=== PATIENT | male | born 1955 | race Caucasian/White ===

== ENCOUNTER → 2023-08-26 | Outpatient (CLI) | payer MEDICARE, SELFPAY ==
--- NOTE | 2023-08-26 08:00 | MRI_ITS ---
STUDY: MRI LUMBAR SPINE WITHOUT CONTRAST REASON FOR EXAM: Male, 68 years old. pain pain, low back,rt leg,, TECHNIQUE: Standardized fat and water weighted pulse sequences were obtained in the sagittal and axial planes. COMPARISON: None FINDINGS: Extrarenal pelvic systems versus parenchymal cysts incompletely evaluated in both kidneys, partially viewed on image 15/38 series 19. No marrow edema or fracture or compression deformity is present. Normal lumbar lordosis. There is no substantial scoliosis. Normal conus medullaris that terminates at the T12-L1: Normal endplates. Normal disc height, hydration and morphology. Normal bilateral facet joints. Normal central canal and bilateral lateral recesses. Normal bilateral intervertebral neural foramina. L1-2: Normal endplates. Normal disc height, hydration and morphology. Normal bilateral facet joints. Normal central canal and bilateral lateral recesses. Normal bilateral intervertebral neural foramina. L2-3: Normal endplates. Normal disc height and morphology. Normal bilateral facet joints. Normal central canal and bilateral lateral recesses. Normal bilateral intervertebral neural foramina. L3-4: Severe disc space narrowing with a diffuse disc osteophyte complex. Mild Modic endplate degenerative signal. Mild facet joint and ligament of flavum hypertrophy, right greater than left. Bilateral lateral recess stenosis. Mild nerve root impingement of the right descending nerve root within the lateral recess. Normal central canal. Mild left foraminal stenosis. Mild right foraminal stenosis with posterior nerve root impingement. L4-5: Normal endplates. Diffuse disc desiccation with mild to moderate posterior disc space narrowing resulting in a moderate size right paracentral disc protrusion measuring 8.8 x 7.3 mm in diameter causing right lateral recess stenosis with nerve root compression and mild central canal stenosis. Mild facet joint hypertrophy. Moderate left foraminal stenosis with nerve root compression. Normal right neural foramen. L5-S1: Normal endplates. Diffuse disc desiccation with mild posterior disc space narrowing and slight annular bulging. Mild facet joint hypertrophy. Normal central canal and bilateral lateral recesses. Normal bilateral intervertebral neural foramina. Normal visualized sacral ala. Normal visualized paraspinous soft tissue structures. MRI/Spine Lumbar (Routine) IMPRESSION: 1. Multilevel degenerative changes, as described above. 2. L4-5: Normal endplates. Diffuse disc desiccation with mild to moderate posterior disc space narrowing resulting in a moderate size right paracentral disc protrusion measuring 8.8 x 7.3 mm in diameter causing right lateral recess stenosis with nerve root compression and mild central canal stenosis. 3. L3-4: Severe disc space narrowing with a diffuse disc osteophyte complex. Mild Modic endplate degenerative signal. Mild facet joint and ligament of flavum hypertrophy, right greater than left. Bilateral lateral recess stenosis. Mild nerve root impingement of the right descending nerve root within the lateral recess. 4. Moderate left foraminal stenosis with nerve root compression at L4-L5 Electronically Signed: David Zelaya MD at 14:47 EST ,
== END | disposition home or self-care (01) ==
PROVIDERS: PCP Nurse Practitioner Family; Referring Provider Orthopaedic Surgery Orthopaedic Surgery of the Spine; Visit Provider Orthopaedic Surgery Orthopaedic Surgery of the Spine
DX: M54.50 Low back pain, unspecified (principal)
CPT/HCPCS: 72148

== ENCOUNTER 2023-10-29 05:10 | Inpatient (IN) | payer MEDICARE, SELFPAY ==
--- NOTE | 2023-10-16 08:48 | EKG12_ITS ---
Test Reason : PRE-OP Blood Pressure : / mmHG Vent. Rate : 091 BPM Atrial Rate : 091 BPM P-R Int : 138 ms QRS Dur : 090 ms QT Int : 372 ms P-R-T Axes : 041 028 049 degrees QTc Int : 457 ms Normal sinus rhythm Inferior infarct , age undetermined Abnormal ECG Confirmed by ARTURO MATA, RICARDO ([id number]), editorial director DARLENE GRAY ([id number]) on 10/16/2023 1:05:16 PM Referred By: LUIS Confirmed By:RICARDO MORRIS MD
[2023-10-16 09:33] LABS: Absolute Lymphocyte Count 1.62 X10^3/uL (0.83-4.51); Absolute Neutrophil Count 4.7 X10^3/uL (2.0-7.7); Basophil# 0.07 X10^3/uL; Eosinophil# 0.12 X10^3/uL; Eosinophils% 1.7 % (0-5); Hematocrit 48.1 % (40-54); Hemoglobin 15.9 g/dL (13.0-16.5); Lymphocyte # 1.62 X10^3/ul (0.83-4.51); Lymphocyte % 22.8 % (19-41); Mean Corp Hgb Conc 33.1 g/dL (32-36); Mean Corpuscular Hgb 29.6 pg (27.0-32.0); Mean Corpuscular Volume 89.6 fL (80-94); Mean Platelet Vol. 9.8 fl (6.2-12.0); Monocyte# 0.55 X10^3/uL; Monocyte% 7.7 % (0-10); NRBC Flagged by Analyzer 0 % (0-5); Neutrophil # 4.72 X10^3/uL (2.7-7.7); Neutrophil % 66.5 % (47-70); Platelet Count 191 K/mm3 (150-450); RBC Distribution Width CV 13.1 % (11.6-14.6); RBC Distribution Width SD 42.8 fl (35.1-43.9); Red Blood Count 5.37 M/mm3 (4.6-6.2); White Blood Count 7.1 K/mm3 (4.4-11.0)
[2023-10-16 10:13] LABS: Hemoglobin A1c 6.3 % (3.8-5.6)
[2023-10-16 10:14] LABS: Anion Gap 7 (5-15); BUN 17 mg/dL (7-18); BUN/Creat Ratio 14.7 RATIO (10-20); Chloride 109 mmol/L (98-107); Creatinine, Serum 1.16 mg/dL (0.70-1.30); EST Glomerular Filtration Rate 66 mL/min (>60); Est Glom Filt Rate - Afr Amer 80 mL/min (>60); Glucose 139 mg/dL (74-106); Potassium 4.2 mmol/L (3.5-5.1); Sodium Level 138 mmol/L (136-145)
[2023-10-16 10:18] LABS: AST(SGOT) 21 U/L (15-37); Alanine Aminotransfer ALT/SGPT 33 U/L (16-61); Albumin, Serum 3.6 g/dL (3.2-5.0); Alkaline Phosphatase 65 U/L (45-117); Globulin 3.8 g/dL (2.2-4.2); Magnesium 2.1 mg/dL (1.6-2.6); Protein, Total 7.4 g/dL (6.4-8.2); Thyroid Stim Hormone (TSH) 3.91 uIU/mL (0.358-3.74)
[2023-10-16 10:42] LABS: HIV - WCH Non-Reactive (Nonreactive); Hepatitis B Surface Antibody Reactive; Hepatitis C Antibody Non-Reactive (Nonreactive)
[2023-10-17 05:07] LABS: Hepatitis A AB, Total Positive (Negative)
--- NOTE | 2023-10-22 14:59 | NURSING ---
PT PHONED IN TO RECEIVE CLARIFICATION REGARDING SURGERY PREP. THIS RN REVIEWED MEDICATIONS TO TAKE NIGHT BEFORE AND MORNING OF SURGERY, NPO STATUS INFO, TIMING OF ENSURE DRINKS, PRE-SURGERY SOAP/ INFO GIVEN PER PT REQUEST RE: VISITNG HOURS, LIVING WILL , POA. PT STATES HE DOES HAVE PACKET OF INSTRUCTIONS FROM DR OFFICE. PT VERBALIZES UNDERSTANDING OF INFO DISCUSSED HERE.
[2023-10-29] VITALS (14 sets, daily range): BP systolic 100–136; BP diastolic 58–94; PULSE 83–122; RESP 14–20; TEMP 35.7–37.1; O2SAT 83–99; BMI 38.5
[2023-10-29] MEDS: Lactated Ringers 1,000 ML 15 ML IV (06:00)
[2023-10-29] MEDS: Acetaminophen 500 MG Tablet 1000 MG PO ×2 (06:18→20:56)
[2023-10-29] MEDS: Magnesium 1 GM over 15 mins IV (06:18)
[2023-10-29 06:22] LABS: Bedside Glucose 209 mg/dL (74-106)
[2023-10-29] MEDS: Insulin Lispro 100 UNIT/ML INSULN.PEN SC (06:30)
--- NOTE | 2023-10-29 07:27 | HP.PCM_ITS ---
History and Physical Date of Admission: 10/29/23 MR#: [id number] Acct: [id number] Name: CHUCK DILL Rep #: [id number] : 1955 Provider: Dr. Alvin Prakash MD Age/Sex: 68/M Location: [facility] – [place] Status: Signed Intake Vital Signs 07/25/2309:24 10/21/2408:19 Height 5 ft 8 in 5 ft 8 in Weight: 249 lb 250 lb 4 oz BMI 37.8 38.0 Intake Visit Reasons: lumbar spine Chief Complaint: low back pain Accompanied by: Self Is patient in pain?: Yes Pain scale (1-10): 8 Allergies cephalexin Allergy (Verified 10/22/23 09:20) Rashdoxycycline Allergy (Verified 10/22/23 09:20) Diarrhealovastatin Allergy (Verified 10/22/23 09:20) Othermetformin Allergy (Verified 10/22/23 09:20) Diarrheasulfas Allergy (Mild, Uncoded 10/22/23 09:20) Rash Medications atorvastatin 40 mg tablet 40 mg PO DAILY CHOLESTEROL 05/02/23 [History Confirmed 10/22/23] empagliflozin 25 mg tablet (Jardiance) 25 mg PO QAM DIABETES 05/02/23 [History Confirmed 10/22/23] glipizide 10 mg tablet, extended release 24 hr 20 mg PO DAILY DIABETES 05/02/23 [History Confirmed 10/22/23] insulin glargine-yfgn 100 unit/mL (3 mL) subcutaneous pen 75 unit subcut QPM DIABETES 05/02/23 [History Confirmed 10/22/23] lisinopril 40 mg tablet 40 mg PO DAILY BP 05/02/23 [History Confirmed 10/22/23] albuterol sulfate 90 mcg/actuation aerosol inhaler 2 puff inhalation Q6H PRN shortness of breath or wheezing 05/29/23 [History Confirmed 10/22/23] metformin 500 mg tablet,extended release 24 hr 1,000 mg PO BID DIABETES 05/29/23 [History Confirmed 10/22/23] dulaglutide 3 mg/0.5 mL subcutaneous pen injector (Trulicity) 3 mg subcut MO DIABETES 10/14/23 [History Confirmed 10/22/23] PFSH Medical History Ambulates with cane Anemia Arthritis Asthma Cardiology follow-up encounter CPAP (continuous positive airway pressure) dependence Depression Diastolic dysfunction Dietary restriction Diverticulitis Fatty liver Former smoker Heartburn Hepatitis High cholesterol History of echocardiogram History of edema History of heart attack History of pain when walking History of stress test Hypertension Injury of back Insulin dependent diabetes mellitus Leg cramps Lumbar herniated disc Neuropathic pain Polyarthralgia Prostate disease Protruded lumbar disc Restless legs Seborrheic keratoses Shortness of breath on exertion Thyroid disease Wears glasses Surgical History History of appendectomy History of hernia repair History of lumbar laminectomy Hx of colectomy Hx of colonoscopy Status post lumbar microdiscectomy Family History Grandfather Cancer Diabetes HypertensionMother Cancer Diabetes Hypertension Social History household members: friend(s) Smoking Status: Former smoker alcohol intake: current alcohol intake frequency: a few times a week HPI lumbar spine Details: This documentation accurately reflects the service provided and the decisions made by me, Dr. Alvin Prakash MD 10/22/23 0916. Part of today?s visit was documented by [ ], acting as scribe. CHUCK DILL is a 68 year old M here today for Pre-op. Patient is getting L3-L4 & L4-L5 Anterior & Posterior Fusion with L3-L4 & L4-L5 Laminectomy on 10/29/23. Patient states that his back pain has been about the same that nothing has changed. Patient was given the soap and drinks for surgery and gone over them with him. Chuck continues to have low back pain that radiates down to the right worse than left lower extremities. He is here for his preop visit. Following his his previous history.: 09/04/23: CHUCK DILL is a 68 year old M here today for MRI review of lumbar spine. Patient states he is currently in pain. He ambulates with a cane today. He states it is getting more difficult to sleep at night. Patient denies anything that helps decrease his pain. Patient states that getting around anymore is difficult and increases his lumbar spine pain. Patient denies taking any pain medication for his lumbar spine pain. Patient is hoping to discuss surgery today and wants to come up with a possible date. Chuck continues to be in significant low back pain which is radiating to the right worse than left lower extremities. I had seen him briefly in conjunction with Dr. Harley at his last visit with Dr. Harley on 07/25/2023. At that time he had discussed the possibility of surgery with Dr. Harley, but was advised to obtain an updated MRI. He obtained a new MRI and is here to review. He has had L3-4 right laminotomy surgery in 2005 as well as an upper thoracic laminectomy with instrumented fusion in 2013. He has had multiple abdominal surgeries including midline incisions for diverticulitis as well as an open appendectomy incision in the right lower quadrant. He had a prolonged course of physical therapy over the last few years which did not seem to help and only aggravated his pain. He declined injections because of his diabetes. He has had chiropractic treatment as well in the past. He has seen Dr. Harley multiple times in April and June 2023. His symptoms have been worsening with time which is adding depression for him. At his last visit with Dr. Harley, Dr. Harley requested me to evaluate hip for possibility of an oblique anterolateral surgical approach to address his lumbar pathology. Ortho Exam General General: Yes no acute distress Neurologic: Yes alert and Yes oriented x3 Spine SPINE TESTING CERVICAL THORACIC LUMBAR Musculoskeletal Strength 0=absent - 5=normal Details: Examination of the back shows midline scar likely from the L3-4 laminotomy. Abdomen shows lower midline incisional scar as well as right lower quadrant appendectomy scar. Neurologic evaluation of bilateral lower extremity shows 5 x 5 power in all muscle groups with normal sensations in all dermatomes. Coding Level of Care Code Off vis,est,level 4 Diagnoses Spinal stenosis of lumbar region with neurogenic claudication M48.062 Time Spent (min) 45 Assessment and Plan Assessment and Plan (1) Spinal stenosis of lumbar region with neurogenic claudication: Status: Acute Orders: Orders L/S Spine Bending Flex/Ext Today M48.062 - Spinal stenosis, lumbar region with neurogenic claudication Plan I again reviewed the patient's x-rays from April as well as MRI from July 2023. I also obtained flexion-extension views today. These show L3-4 reduced disc height with degenerative disc disease with right worse than left foraminal stenosis. At L4-5 there is a right paracentral disc bulge causing severe lateral recess stenosis along with bilateral foraminal stenosis. No dynamic instability on flexion-extension views. I again explained to him options for treatment which include continued nonoperative treat measures versus surgery. He has failed a prolonged course of nonsurgical treatment including physical therapy which only increases pain in the past. His diabetes is better with A1c in the sixes. At this point he would like to proceed with surgery. Surgical options were discussed in detail. L3-5 anterior posterior fusion with posterior decompression was discussed in detail. All risk benefits and alternatives were discussed. The risks include but are not limited to infection, bleeding, injury to nerves and vessels, need for blood transfusion, nerve root injury, foot drop, DVT, pulmonary embolism, ileus, visceral injury, pneumonia, atelectasis, cardiopulmonary event, pseudoarthrosis, hardware failure, need for further surgeries, adjacent segment degeneration, persistent pain. Patient has had multiple abdominal surgeries including midline scars. I explained to him the anterolateral approach. Although his prior incisions of midline there may be deeper scarring close to the spine that may make it difficult for anterior approach. Alternative posterior approach options were discussed. All questions were answered. Patient understands and agrees to proceed with surgery. Consent was signed.
[2023-10-29] MEDS: Clindamycin 900 MG/50 ML BAG 75 MG IV ×3 (07:37→20:55)
--- NOTE | 2023-10-29 07:50 | RAD_ITS ---
STUDY: X-RAY - LUMBAR SPINE REASON FOR EXAM: Male, 68 years old. Anterior and posterior fusion. Intraoperative digital documentation views. TECHNIQUE: 14 intraoperative digital documentation view(s) of the lumbar spine were obtained. COMPARISON: Lumbar spine x-rays dated 10/22/2023 FINDINGS: Intraoperative digital documentation views show changes of fusion. RAD/Lumbar Spine 2 or 3 Views IMPRESSION: Intraoperative digital documentation views as described. Electronically Signed: William Olivas MD at 13:17 EDT ,
[2023-10-29 11:16] LABS: Bedside Glucose 185 mg/dL (74-106)
--- NOTE | 2023-10-29 12:15 | RAD_ITS ---
STUDY: X-RAY - LUMBAR SPINE REASON FOR EXAM: Male, 68 years old. L3-L4, L4-L5 fusion and laminectomy TECHNIQUE: Single lateral view(s) of the lumbar spine were obtained. COMPARISON: None FINDINGS: The localization instrument is seen posterior to the L3-L4 disc space level. RAD/Spine 1 View Any Level IMPRESSION: The localization instrument is seen posterior to the L3-L4 disc space level. Electronically Signed: David Rey MD at 14:38 EDT ,
[2023-10-29] MEDS: THROMBIN (RECOMBINANT) 20,000 UNIT VIAL 20000 UNIT TOPICAL (12:55)
[2023-10-29 13:35] LABS: Bedside Glucose 178 mg/dL (74-106)
--- NOTE | 2023-10-29 13:55 | RAD_ITS ---
STUDY: X-RAY - LUMBAR SPINE REASON FOR EXAM: Male, 68 years old. L3-L4, L4-L5 fusion and laminectomy TECHNIQUE: 1 view(s) of the lumbar spine were obtained. COMPARISON: Comparison is made with prior study done earlier in the day. FINDINGS: The patient is status post anterior and posterior fusion at the L3-L4 and L4-L5 levels with prosthetic disc placement. RAD/Spine 1 View Any Level IMPRESSION: Status post anterior and posterior fusion at the L3-L4 and L4-L5 levels with prosthetic disc placement. Electronically Signed: David Rey MD at 14:03 EDT ,
--- NOTE | 2023-10-29 14:14 | PCM.OPRPT ---
Report of Operation Description of Surgical Findings:: Preoperative diagnosis: Herniated disc L4-5 with intractable L5 radiculopathy on the right side and degenerative disc disease at L4-5 And L3-4. Postoperative diagnoses: Same Procedures: #1 posterior lumbar fusion L4-5 CPT code 48365 #2 lumbar laminectomy L4-5 on the right CPT code 41073 #3 internal fixation L4-5 CPT code 10701 #4 internal fixation L3-4 CPT code 87495/51 #5 posterior lumbar fusion L3-4 CPT code 03115/51 #6 bone allograft with autograft L3-L5 CPT code 86468 Surgeon: Dr. Harley Photogrammetric Engineer: Dr. Prakash Anesthesia: General endotracheal administered by [facility] Drains: None EBL: 500 cc for both the anterior surgery and the posterior surgery Complications: None Procedure: After Dr. Prakash and Dr. Mchugh completed the anterior L3-4 and L4-5 fusion the patient was then moved to a Jose Luis frame on the OR table in the prone position. Great care was taken to protect his bony prominences ulnar nerves of both elbows his brachial plexus on both sides his facial features and eyes his genitalia and bony prominences. Once positioned the back was prepped and draped standard fashion. I then made a longitudinal incision centered over what I thought would be L4-5. Cutaneous tissues were incised length of skin incision I then elevated paravertebral muscles off on the right side. An intraoperative x-ray was taken demonstrate we were aimed at L3-4 instead which was really okay we simply moved down 1 level and marked it. First I simply expose the L4 lamina on the right side put a Maddison retractor in place. We then removed the fatty tissue and areolar tissue off of the lamina of L4. I also exposed the top of the lamina of L5. I used double-action rongeurs to thin down the thickened L for lamina on the right. I then released the ligamentum flavum off the underside of the lamina of L4 using curettes. I then performed the hemilaminotomy on the right side. I then put a hockey-stick retractor also called a Valerie under the ligamentum flavum near its medial border and cut on top of it with a sharp 15 blade. I then released the ligamentum flavum off the top of the L5 lamina using curettes. Then began removal of the ligamentum flavum with 45 degree Kerrison rongeurs. At times I protected the dura with cottonoids as needed. We finally remove the entire lateral ligamentum flavum. Note that we thoroughly irrigated repeatedly in the course of the case to prevent infection. I then retracted the L5 nerve root and dura medialward. Note that the entire lateral recess was well opened. What I found was that the disc that Dr. Prakash was able to remove from the anterior portion followed by the ligamentotaxis from the distraction at L4-5 basically pushed the disc back towards the disc space and there was no significant pressure on the L5 nerve root anymore. In the axilla I did find a very small piece that was quite medial basically adhered to the dura. Since it was no longer any pressure on the L5 nerve I simply left it alone is trying to remove it would put the dura at risk for leakage. I then checked the foramen both from anterior portion of the L5 nerve and the posterior portion and there was no more pressure whatsoever on that nerve root. Note that we thoroughly irrigated with copious amounts of sterile saline repeatedly especially because this gentleman is diabetic. Following this I remove the interspinous ligament between L3-4 and L4-5. This was to make room for the cortical and graft for each level. We then put amnionic membrane directly over the dura to prevent adhesions to the dura in the future. Gelfoam was placed over the top of that I then used the bur to bur the lamina of L5 the lamina of L4 and the lamina of L3 on both sides. This is to prepare for the bone graft note we used both autograft and sparc mixed together and put it on both sides to promote a fusion. Once this was done I then put the and grafts in place over the top of them and tamped them in place. Internal fixation devices were then applied at both the L3-4 and L4-5 levels. Once secured the locking mechanisms were activated leaving them in place and given us good posterior fixation. We had good hemostasis by this time and there was no need for a drain. I then closed the lumbar fascia using [id number] suture with #1 Vicryl. We then closed the subcutaneous tissues in 2 layers the first layer with 0 Vicryl in interrupted fashion and the second layer with 2-0 Vicryl in interrupted fashion. Skin clips were then applied. We then put sterile dressings over this. The patient was then recovered in the OR he was moved to his hospital bed and taken to recovery in satisfactory condition. This is the end of operative summary on Chuck Rivas. This is Dr. Harley dictating.
--- NOTE | 2023-10-29 14:21 | OP.PCM_ITS ---
Report of Operation Date of Procedure: 10/29/23 Description of Surgical Findings:: Preoperative diagnosis: L3-5 disc degeneration with foraminal stenosis Postoperative diagnosis: Same Name of procedures L3-5 oblique lumbar interbody fusion (OLIF), minimally invasive left sided approach, lateral decubitus: ? L3-4 anterolateral spinal fusion 21439 ? L4-5 anterolateral fusion 30003/51 ? L3-4 insertion of cage 89108 ? L4-5 insertion of cage 68954/51 ? Bone graft aspirate left anterior iliac crest ? Allograft cancellous chips Attending Surgeon: Dr. Alvin Prakash Co-surgeon: Dr. Hernán Mchugh Estimated blood loss: 100 mL , 500 mL for entire case Anesthesia: General Complications: None Indications: Patient is a 68-year-old pleasant gentleman who has had a long history of low back pain and right worse than left lower extremity radiation with claudication. Xrays & MRI revealed L3-4 and L4-5 disc degeneration, postsurgical changes of right L3-4 laminotomy, L4-5 right paracentral disc herniation with lateral recess stenosis, L3-5 foraminal stenosis. After undergoing a prolonged period of nonoperative treatment, the patient elected to undergo surgical decompression & fusion. All surgical options were discussed with the patient including anterior and posterior approaches. All risks and benefits associated with the procedure were explained to the patient. The risks include but are not limited to infection, bleeding, injury to nerves and vessels including major vessels like IVC and aorta, persistent paresthesia, persistent pain, dural tear, need for further procedures, adjacent segment degeneration, pseudoarthrosis, hardware failure, retrograde ejaculation, paralytic ileus, etc. Procedure: The patient was identified in the preoperative holding suite using Unique patient identifiers. Skin was marked, consent was reviewed, and all questions were answered. The patient was then brought back to the operative room. A surgical timeout was performed to make sure correct procedure was being done on the correct patient and all operative room staff were on the same page. General endotracheal anesthesia was then given to the patient. Mahmood catheter was inserted. The patient was then carefully positioned in right lateral decubitus position with the left side up on a regular OR table. Axillary roll was placed and all bony prominences were well- padded. Hip positioners were placed in the posterior buttocks and anterior sternal area. The surgical area was prepped and draped in usual fashion. Preoperative antibiotic was injected IV as preoperative antibiotic. A final timeout was then again done just before starting the procedure. A 2 inch incision oblique was taken in the left lower quadrant of the abdomen 2 fingerbreadths away from the iliac crest and the lower ribs. Sharp dissection with Bovie was carried out up to the fascia covering the external oblique. The external oblique, internal oblique and transversus abdominis muscles were split along the muscle fibers and retroperitoneal space was entered. Sponge sticks were utilized to move the bowel and peritoneum [id number]-way and psoas muscle was exposed staying within the retroperitoneal plane. [employer] retractor system was positioned and the retractor blade was applied onto the psoas. The interval between psoas and midline structures was developed and appropriate retractors were placed. Once adequate interval was cleared, a disc space was identified and a marker x-ray was taken. This identified the L3-4 disc level. The prepsoas interval was then traced inferiorly and L4-5 disc was exposed. Annulotomy was done with a long handled knife starting at L4-5. Pituitary was used to remove disc material. Curettes were used to prepare the endplates. Disc space spreaders were utilized to distract and increase the disc height. Near complete discectomy was performed. Trials of serially increasing sizes were used. A Jamshidi needle was used to aspirate bone marrow from the left anterior iliac crest through a separate incision and this aspirate was mixed with the allograft bone chips. A Depuy Witt cage of size of the 18 x 15 x 14 mm with 15 degrees lordosis was packed with corticocancellous allograft bone chips mixed with bone marrow aspirate. This was inserted into the L4-5 disc space. The retractors were then repositioned to expose the L3-4 disc and the procedure was repeated with complete discectomy and endplate preparation. Smaller disc distractors were also used to bluntly perform a contralateral annulotomy at both levels. Cage size was 18 x 15 x 12 mm at L3-4. AP and lateral C-arm pictures were taken to confirm good position of the cage. Some bone chips were also packed around the cages. 4 web to hold plates were placed over both cages with a 45 mm screws placed above and below the cage into the vertebral bodies. This was again confirmed on C-arm to be in good position. Hemostasis was confirmed. The retractor blades were removed. Closure was done in layers with a continuous strand of # 1 Vicryl in all muscle layers. 2-0 Vicryl was used for subcutaneous tissue and 4-0 for Monocryl for the skin. Steri-Strips were applied and 4 x 4 gauze and Tegaderm were applied. Admit VTE Documentation VTE Mechan Device Prophylaxis: SCD's Procedures Musculoskeletal [id number]-[id number]: Other Procedure See Report
[2023-10-29] MEDS: Ketorolac 30 MG/ML Syringe IV (15:06)
[2023-10-29 15:23] LABS: Bedside Glucose 180 mg/dL (74-106)
[2023-10-29] MEDS: metFORMIN (XR) 500 MG Tablet 1000 MG PO (17:23)
[2023-10-29] MEDS: Methocarbamol 500 MG Tablet 1000 MG PO ×2 (17:23→20:56)
[2023-10-29] MEDS: oxyCODONE 5 MG Tablet PO (18:35)
--- NOTE | 2023-10-29 20:23 | CON.PCM.HO_ITS ---
Assessment & Plan Assessment/Plan (1) Spinal stenosis of lumbar region with neurogenic claudication: (2) Herniated nucleus pulposus, L4-5 right: PLAN: Plan This is a 3-year-old gentleman who is being evaluated for perioperative management after lumbar spine surgery. 1. Perioperative management of L3-5 disc degeneration with foraminal stenosis and herniated L4-5 right: Patient had L3-5 oblique lumbar interbody fusion, left-sided approach by Dr. Prakash. Patient is admitted to [facility]. Has Mahmood catheter inserted prior to surgery. Clear urine. Last bowel movement was yesterday. On a stool softener. Mild expiratory pain on the lumbar back. 2. Diabetes mellitus type 2: Glucose is between 1 80?209. Hold oral hypoglycemic agents including metformin and glipizide. Accu-Cheks ACHS correctional clinic scale. Patient on Lantus insulin 60 units subcutaneous at dinner. 3. Hypertension: Blood pressure is controlled. On lisinopril 40 mg daily. 4. Obstructive sleep apnea on auto CPAP CPAP ordered 5. Chronic intermittent asthma: On DuoNeb as needed as needed for shortness of breath or wheezing. 6. DVT prophylaxis as per discretion of surgeon. Bilateral SCDs Laboratory Results 10/29/23 05:45: POC Glucose 209 H 10/29/23 10:57: POC Glucose 185 H 10/29/23 13:17: POC Glucose 178 H 10/29/23 15:00: POC Glucose 180 H HPI Consult Data Date of Consult: 10/29/23 HPI Narrative Reason for Consultation: Perioperative management of diabetes mellitus type 2, hypertension, KERRY HPI Narrative: NATO DILL, is a 68 M who is being admitted after operative management of L3- 4, L4-5 disc herniation and surgery. Patient is stated he had 2 lumbar surgeries in the past. He ambulates with a cane with getting more difficult to ambulate and sleep because of pain. Patient had severe lower back pain with radiation to right worse than left lower extremity. Patient had L3-4 right laminotomy surgery in 2005 and upper thoracic laminectomy with instrumented fusion in 2013. He completed conservative management which includes prolonged course of physical therapy over the last few years but has only aggravated his pain. Patient has Mahmood catheter urine present in the urine bag. Denies chest pain, pressure or tightness. No acute shortness of breath. His last bowel was yesterday [facility] Medical History Ambulates with cane Anemia Arthritis Asthma Cardiology follow-up encounter CPAP (continuous positive airway pressure) dependence Depression Diastolic dysfunction Dietary restriction Diverticulitis Fatty liver Former smoker Heartburn Hepatitis High cholesterol History of echocardiogram History of edema History of heart attack History of pain when walking History of stress test Hypertension Injury of back Insulin dependent diabetes mellitus Leg cramps Lumbar herniated disc Neuropathic pain Polyarthralgia Prostate disease Protruded lumbar disc Restless legs Seborrheic keratoses Shortness of breath on exertion Thyroid disease Wears glasses Home Medications atorvastatin 40 mg tablet 40 mg PO DAILY CHOLESTEROL 05/02/23 [History Last Taken 10/28/23] empagliflozin 25 mg tablet (Jardiance) 25 mg PO QAM DIABETES 05/02/23 [History Last Taken 10/28/23 09:00] insulin glargine-yfgn 100 unit/mL (3 mL) subcutaneous pen 60 unit subcut QPM DIABETES 05/02/23 [History Last Taken 10/28/23 21:00] lisinopril 40 mg tablet 40 mg PO DAILY BP 05/02/23 [History Last Taken 10/29/23 04:00] albuterol sulfate 90 mcg/actuation aerosol inhaler 2 puff inhalation Q6H PRN shortness of breath or wheezing 05/29/23 [History Last Taken Unknown] metformin 500 mg tablet,extended release 24 hr 1,000 mg PO BID DIABETES 05/29/23 [History Last Taken 10/28/23 09:00] dulaglutide 4.5 mg/0.5 mL subcutaneous pen injector (Trulicity) 4.5 mg (0.5 mL) subcut QWEEK diabetes #2 mL 10/23/23 [Rx Last Taken 10/27/23 09:00] glipizide 10 mg tablet, extended release 24 hr 20 mg (2 x 10 mg) PO DAILY DIABETES #180 tabs 10/23/23 [Rx Last Taken 10/28/23 09:14] Allergy/AdvReac Type Severity Reaction Status Date / Time cephalexin Allergy Rash Verified 10/23/23 08:37 doxycycline Allergy Diarrhea Verified 10/23/23 08:37 lovastatin Allergy Other Verified 10/23/23 08:37 metformin Allergy Diarrhea Verified 10/23/23 08:37 sulfas Allergy Mild Rash Uncoded 10/23/23 08:37 Family History Grandfather Cancer Diabetes Hypertension Mother Cancer Diabetes Hypertension Surgical History History of appendectomy History of hernia repair History of lumbar laminectomy Hx of colectomy Hx of colonoscopy Status post lumbar microdiscectomy Social History household members: friend(s) Smoking Status: Former smoker alcohol intake: current alcohol intake frequency: a few times a week ROS ROS Narrative Constitutional: Reports fatigue and weakness. No fever. HEENT: Reports systems reviewed and no addt'l complaints, except as documented Respiratory/Chest: No acute shortness of breath or respiratory distress or wheezing. CVS: Denies chest pressure, pain or tightness. Gastrointestinal: Denies coffee ground emesis, hematemesis or vomiting Genitourinary: Mahmood catheter present after surgery. Denies burning urination or new urinary tract symptoms Musculoskeletal: Severe lower back pain, sciatic in nature as described in HPI. Neurologic: Denies seizure-like symptoms. No acute strokelike symptoms. skin: No ulcer. No rash Endocrinology: Reports systems reviewed and no addt'l complaints, except as documented Hematologic/Lymphatic: Reports systems reviewed and no addt'l complaints, except as documented Rest 14 ROS are negative except as mentioned in HPI Physical Exam Narrative General: Alert, Oriented x3, Cooperative HEENT: Atraumatic, PERRLA, EOMI, Normocephalic Oral: Oral mucosa moist. no Gingival or Mucosal Lesions/ Ulcerations Neck: Supple, No JVD, Negative Carotid Bruits Chest wall/Lungs: Air entry diminished in bilateral lung bases. No cr epitation/rhonchi Cardiovascular: Regular rate, Regular Rhythm, Normal S1, Normal S2, No M/G/R Abdomen: Bowel Sounds Present, Soft, Non Tender, Non-Distended. Left lateral abdominal incision dry. : Clear urine present in Mahmood catheter/urine bag No renal angle tenderness. No suprapubic tenderness. Extremities: No edema, Capillary Refill Less than 3 Seconds Skin: No rashes, No breakdown Musculoskeletal: No Tenderness to Palpation of Joints or Extremities Spine: Surgical dressing dry over lumbar back. Neurological: Cranial nerves II-XII grossly intact, DTR 2+/4. No acute focal neurological deficit. Psych/Mental Status: Normal Affect, Appropriate. Lab / Micro Data 10/16/23 09:01 10/16/23 09:01 Labs: Laboratory Results - last 24 hr 10/29/23 05:45: POC Glucose 209 H 10/29/23 10:57: POC Glucose 185 H 10/29/23 13:17: POC Glucose 178 H 10/29/23 15:00: POC Glucose 180 H Imaging Radiology Impression Lumbar Spine X-Ray 10/29/23 07:50 IMPRESSION: Intraoperative digital documentation views as described. Electronically Signed: William Olivas MD at 13:17 EDT , Spine X-Ray 10/29/23 12:15 IMPRESSION: The localization instrument is seen posterior to the L3-L4 disc space level. Electronically Signed: David Rey MD at 14:38 EDT , Charges/Coding Visit Charges Office Visits / Consults: [id number] IP Consult L4
[2023-10-29] MEDS: Senna/Docusate Sodium 1 Tablet 2 TABLET PO (20:56)
[2023-10-29] MEDS: Ondansetron 4 MG/2 ML Vial IV (20:59)
[2023-10-29] MEDS: Insulin Glargine-YFGN 100 UNIT/ML Pen 60 UNIT SC (21:15)
[2023-10-29 22:18] LABS: Bedside Glucose 146 mg/dL (74-106)
[2023-10-30] VITALS (9 sets, daily range): BP systolic 112–130; BP diastolic 68–83; PULSE 98–108; RESP 16–18; TEMP 36.7–37.2; O2SAT 92–95; BMI 38.6
[2023-10-30] MEDS: oxyCODONE 5 MG Tablet PO ×4 (00:24→18:40)
--- NOTE | 2023-10-30 00:24 | CPS ---
Pt has own cpap on , RT had to bleed in O2 at 2L in line with home cpap.
[2023-10-30] MEDS: Acetaminophen 500 MG Tablet 1000 MG PO ×3 (05:48→21:29)
[2023-10-30] MEDS: Clindamycin 900 MG/50 ML BAG 75 MG IV (06:10)
[2023-10-30 06:12] LABS: Bedside Glucose 113 mg/dL (74-106)
--- NOTE | 2023-10-30 07:26 | OP.PCM_ITS ---
Report of Operation Date of Procedure: 10/29/23 Pre-Operative Diagnosis: L3-5 disc degeneration with foraminal stenosis Post-Operative Diagnosis: same Surgery/Procedure Performed:: L3-5 oblique lumbar interbody fusion (OLIF), minimally invasive left sided approach, lateral decubitus: ? L3-4 anterolateral spinal fusion 41482 ? L4-5 anterolateral fusion 19667/51 ? L3-4 insertion of cage 94984 ? L4-5 insertion of cage 31290/51 ? Bone graft aspirate left anterior iliac crest ? Allograft cancellous chips Surgeon: Co-surgeons: Dr. Prakash, Dr. Mchugh Type of Anesthesia: General Description of Procedure: HPI: Patient is a 68-year-old male with L3-L5 degenerative disc disease evaluated by Dr. Prakash and felt to be appropriate for L3-L4, L4-L5 interbody fusion via an oblique approach. Vascular surgery services are requested to perform exposure and mobilization of the abdominal contents. Description of procedure: Upon obtaining informed consent and verification c orrect patient procedure site patient taken the operating where he was placed under anesthesia. He was then positioned prepped and draped in usual fashion a timeout was performed. Oblique incision was made over the left iliac crest and Bovie electrocautery was dissect down through the subcutaneous tissue to the level the fascia. Fascia was then incised with sharp dissection and the muscles of the external oblique, internal oblique, and transversalis muscle were then split with hand-held retractors removed sequentially deeper into the wound. After dissection was completed through the transversalis muscle we entered into the retroperitoneum and blunt dissection used to dissect free the retroperitoneal contents and mobilized this in the abdominal contents anteromedially until the psoas muscle was identified. At this point the syn frame self-retaining retractors put in the position and the retractor blades placed to optimize visualization of the psoas muscle and the retroperitoneal ti ssue anterior to this. The patient had had previous colorectal surgery and fairly severe history of diverticulitis so there is a significant amount of scar tissue. Combination of Bovie dissection and blunt dissection were used to mobilize the psoas muscle and retracted posteriorly exposing the L3-L4 disc space. The disc was then marked with Bovie and dissection carried distally down to the L4-L5 disc space. Again there was a significant mount of scar tissue which had to be mobilized with Bovie and some sharp dissection in addition to the usual blunt dissection. Ultimately were able to expose the disc space at which point Dr. Prakash performed the L4-L5 discectomy and implant followed by the L3-L4 discectomy and implant. He will describe these in further detail in a separate dictation. After this was completed the retroperitoneum was inspected for hemostasis and the retractors removed allowing the abdominal contents to return to the normal position. The superficial wound was then copiously irrigated and the individual muscle layers were closed with 1 Vicryl in a running fashion. Incision was then closed with 3-0 Vicryl followed by 4 Monocryl. This point the patient was repositioned for posterior approach which would be dictated separately by Dr. Prakash.
--- NOTE | 2023-10-30 07:50 | PCM.PN.HOSP ---
Reason for Visit Reason for Visit: Diagnoses Spinal stenosis, lumbar region with neurogenic claudication (10/29/23) Other intervertebral disc displacement, lumbar region (10/29/23) Encounter for other preprocedural examination (10/29/23) Subjective Subjective Patient is a 68-year-old gentleman who underwent surgery for L3?5 disc degeneration with foraminal stenosis and herniated disc at L4-5. Ortho service was consulted for perioperative management Objective Data Objective Data Vital Signs: Vital Signs Temp Pulse Resp BP Pulse Ox O2 Del Method O2 Flow Rate 98.0 F 98 18 113/72 95 CPAP 2 10/30/23 04:22 10/30/23 04:22 10/30/23 04:22 10/30/23 04:22 10/30/23 04:22 10/30/23 04:22 10/30/23 00:23 Oxygen Flow Rate (L/min) 2 Oxygen Delivery Method CPAP Weight: 111.765 kg Body Mass Index (BMI) 38.5 Intake & Output: Intake and Output for Last 24 Hours 10/28/23 10/29/23 10/30/23 23:59 23:59 23:59 Intake Total 772 / 772 200 / 200 Output Total 1100 / 1900 1200 / 1200 Balance -328 / -1128 -1000 / -1000 Lab / Micro Data 10/16/23 09:01 10/16/23 09:01 Labs: Laboratory Results - last 24 hr 10/29/23 10:57: POC Glucose 185 H 10/29/23 13:17: POC Glucose 178 H 10/29/23 15:00: POC Glucose 180 H 10/29/23 21:08: POC Glucose 146 H 10/30/23 05:53: POC Glucose 113 H Radiography Diagnostic Testing: Radiology Impression Lumbar Spine X-Ray 10/29/23 07:50 IMPRESSION: Intraoperative digital documentation views as described. Electronically Signed: William Olivas MD at 13:17 EDT , Spine X-Ray 10/29/23 12:15 IMPRESSION: The localization instrument is seen posterior to the L3-L4 disc space level. Electronically Signed: David Rey MD at 14:38 EDT , Physical Exam Narrative GENERAL: cooperative HEENT: Atraumatic; normocephalic EYES; Anicteric, Normal Conjunctiva NECK; supple, normal thyroid, RESPIRATORY: Diminished to auscultation CARDIOVASCULAR: Regular S1 S2, GI: soft, normoactive bowel sounds, : No Renal angle tenderness; EXTREMITIES: No edema, no clubbing, MUSCULOSKELETAL: no muscle wasting NEURO: Awake; no lateralizing signs. SKIN: No Rash PSYCH; Flat affect Assessment & Plan Assessment/Plan (1) Spinal stenosis of lumbar region with neurogenic claudication: (2) Herniated nucleus pulposus, L4-5 right: PLAN: Plan Patient is a 68-year-old gentleman who underwent surgery for L3?5 disc degeneration with foraminal stenosis and herniated disc at L4-5. Ortho service was consulted for perioperative management This is a 3-year-old gentleman who is being evaluated for perioperative management after lumbar spine surgery. 1. L3-5 disc degeneration with foraminal stenosis ? Status postL3-5 oblique lumbar interbody fusion, left-sided approach by Dr. Prakash on 10/29/2023. Postoperative management regarding DVT prophylaxis pain management and PT OT deferred to primary service 2. Diabetes mellitus type II -patient's oral hypoglycemics held. Placed on long acting insulin, Accu-Cheks a.c. and at bedtime and covered with sliding scale insulin 3. Hypertension - Blood pressure controlled, home medications continued with dose adjustment as needed 4. Obstructive sleep apnea ? Consistent use of CPAP encouraged 5. Class II obesity with BMI of 38.6 ? Complicating care weight loss advised 6. Mild intermittent asthma ? DuoNeb treatments as needed 7. DVT prophylaxis ? Deferred to primary service Time spent in the patient's overall evaluation,decision-making process, review of diagnostic data, adjustment of management, discussion with other providers, nursing nursing and ancillary staff involved in patient's care documentation, 38 Minutes Charges/Coding Visit Charges Inpatient E&M: 87436 Subs Hosp L2
[2023-10-30] MEDS: Senna/Docusate Sodium 1 Tablet 2 TABLET PO ×2 (08:34→21:29)
[2023-10-30] MEDS: Ensure Surgery 237 ML LIQUID PO ×2 (08:34→11:36)
[2023-10-30] MEDS: Meloxicam 15 MG Tablet PO (08:35)
[2023-10-30] MEDS: Methocarbamol 500 MG Tablet 1000 MG PO ×4 (08:35→21:29)
[2023-10-30] MEDS: Atorvastatin Calcium 40 MG Tablet PO (08:36)
[2023-10-30] MEDS: Empagliflozin 25 MG Tablet PO (08:36)
[2023-10-30] MEDS: Lisinopril 40 MG Tablet PO (08:36)
--- NOTE | 2023-10-30 11:01 | RAD_ITS ---
STUDY: X-RAY - LUMBAR SPINE REASON FOR EXAM: Male, 68 years old. s/p fusion -- Please do upright AP lateral TECHNIQUE: 3 view(s) of the lumbar spine were obtained. COMPARISON: Comparison is made with prior study of October 29, 2023. FINDINGS: The patient is status post anterior and posterior fusion at the L3-L4 and L4-L5 levels. Prosthetic disc placement is seen. RAD/Lumbar Spine 2 or 3 Views IMPRESSION: Status post posterior and anterior fusion at the L3-L4 and L4-L5 levels with prosthetic disc placement. Electronically Signed: David Rey MD at 13:12 EDT ,
[2023-10-30] MEDS: Insulin Lispro 100 UNIT/ML INSULN.PEN SC ×2 (11:35→21:30)
[2023-10-30 11:43] LABS: Bedside Glucose 182 mg/dL (74-106)
--- NOTE | 2023-10-30 13:09 | PCM.PN.ORT ---
Subjective Subjective Postop day 1 status post L3-5 anterior posterior fusion. Pain well-controlled. No flatus yet. Has been ambulating. Mahmood out this morning and voided spontaneously. Objective Data Objective Data Vital Signs: Vital Signs Temp Pulse Resp BP Pulse Ox O2 Del Method O2 Flow Rate 98.6 F 100 18 130/83 H 95 Nasal Cannula 3 10/30/23 09:00 10/30/23 09:00 10/30/23 09:00 10/30/23 09:00 10/30/23 09:00 10/30/23 10:00 10/30/23 10:00 Oxygen Flow Rate (L/min) 3 Oxygen Delivery Method Nasal Cannula Weight: 246 lb 6.394 oz Body Mass Index (BMI) 38.5 Intake & Output: Intake and Output for Last 24 Hours 10/28/23 10/29/23 10/30/23 23:59 23:59 23:59 Intake Total 772 / 772 250 / 250 Output Total 1100 / 1900 1200 / 1200 Balance -328 / -1128 -950 / -950 Lab / Micro Data 10/16/23 09:01 10/16/23 09:01 Labs: Laboratory Results - last 24 hr 10/29/23 13:17: POC Glucose 178 H 10/29/23 15:00: POC Glucose 180 H 10/29/23 21:08: POC Glucose 146 H 10/30/23 05:53: POC Glucose 113 H 10/30/23 11:25: POC Glucose 182 H Radiography Diagnostic Testing: Radiology Impression Lumbar Spine X-Ray 10/29/23 07:50 IMPRESSION: Intraoperative digital documentation views as described. Electronically Signed: William Olivas MD at 13:17 EDT , Spine X-Ray 10/29/23 12:15 IMPRESSION: The localization instrument is seen posterior to the L3-L4 disc space level. Electronically Signed: David Rey MD at 14:38 EDT , Physical Exam Narrative Dressing CDI. Abdomen soft. Neuro intact. Assessment & Plan Assessment/Plan (1) S/P lumbar fusion: PLAN: Plan Postop day 1 doing well. Continue PT OT mobilization. Discussed black coffee, chewing gum to help moving bowels. Clear liquids until passes flatus. Added p.o. Dulcolax. X-rays reviewed, look good. If passes flatus, and tolerates solid diet, okay to go home. If not, likely will stay another night. Appreciate hospitalist comanagement.
[2023-10-30 13:23] LABS: Anion Gap 6 (5-15); BUN 21 mg/dL (7-18); BUN/Creat Ratio 17.2 RATIO (10-20); Calcium,Total 8.5 mg/dL (8.5-10.1); Chloride 106 mmol/L (98-107); Creatinine, Serum 1.22 mg/dL (0.70-1.30); EST Glomerular Filtration Rate 63 mL/min (>60); Est Glom Filt Rate - Afr Amer 76 mL/min (>60); Estimated Creatinine Clearance 69.15 ml/min; Glucose 164 mg/dL (74-106); Potassium 4.2 mmol/L (3.5-5.1); Sodium Level 136 mmol/L (136-145)
--- NOTE | 2023-10-30 13:28 | PCM.PN.ORT ---
Subjective Subjective This is Dr. Harley dictating progress note on Chuck Rivas. Chuck is doing quite well this morning he is already been up. His back hurts some but not too badly his abdomen does not hurt as much. His right leg pain is completely gone. It is gone even when he is walking which was when it was the worst. Neurologically is intact in both lower extremities. He does not have any bowel sounds yet he is not having any flatulence. He may be able to go home tomorrow it would be up to Dr. Prakash. I asked Chuck to make the appointment on a day that both Dr. Prakash and IR in the clinic so we can both see him that day. It will be in about 2 weeks. Objective Data Objective Data Vital Signs: Vital Signs Temp Pulse Resp BP Pulse Ox O2 Del Method O2 Flow Rate 98.6 F 100 18 130/83 H 95 Nasal Cannula 3 10/30/23 09:00 10/30/23 09:00 10/30/23 09:00 10/30/23 09:00 10/30/23 09:00 10/30/23 10:00 10/30/23 10:00 Oxygen Flow Rate (L/min) 3 Oxygen Delivery Method Nasal Cannula Weight: 246 lb 6.394 oz Body Mass Index (BMI) 38.5 Intake & Output: Intake and Output for Last 24 Hours 10/28/23 10/29/23 10/30/23 23:59 23:59 23:59 Intake Total 772 / 772 250 / 250 Output Total 1100 / 1900 1200 / 1200 Balance -328 / -1128 -950 / -950 Lab / Micro Data 10/16/23 09:01 10/30/23 12:55 Labs: Laboratory Results - last 24 hr 10/29/23 13:17: POC Glucose 178 H 10/29/23 15:00: POC Glucose 180 H 10/29/23 21:08: POC Glucose 146 H 10/30/23 05:53: POC Glucose 113 H 10/30/23 11:25: POC Glucose 182 H 10/30/23 12:55: WBC Cancelled, Corrected WBC Cancelled, RBC Cancelled, Hgb Cancelled, Hct Cancelled, MCV Cancelled, MCH Cancelled, MCHC Cancelled, RDW Std Deviation Cancelled, RDW Coeff of Yanick Cancelled, Plt Count Cancelled, MPV Cancelled, Diff Path Review Cancelled, Sodium 136, Potassium 4.2, Chloride 106, Carbon Dioxide 24.0, Anion Gap 6, BUN 21 H, Creatinine 1.22, Estim Creat Clear Calc 69.15, Est GFR (MDRD) Af Amer 76, Est GFR (MDRD) Non-Af 63, BUN/Creatinine Ratio 17.2, Glucose 164 H, Calcium 8.5 Radiography Diagnostic Testing: Radiology Impression Lumbar Spine X-Ray 10/29/23 07:50 IMPRESSION: Intraoperative digital documentation views as described. Electronically Signed: William Olivas MD at 13:17 EDT Reading Location ID and State: [facility] / [place] , Service support , Spine X-Ray 10/29/23 12:15 IMPRESSION: The localization instrument is seen posterior to the L3-L4 disc space level. Electronically Signed: David Rey MD at 14:38 EDT , Lumbar Spine X-Ray 10/30/23 11:01 IMPRESSION: Status post posterior and anterior fusion at the L3-L4 and L4-L5 levels with prosthetic disc placement. Electronically Signed: David Rey MD at 13:12 EDT ,
--- NOTE | 2023-10-30 13:45 | CASEMGMT ---
Addendum entered by Aby Gudino 10/30/23 16:02: [facility] calls and states that they can accept the pt for SOC Friday 11/03. Original Note: MICHELLE ALMODOVAR Assessment Face to Face with patient for initial transition planning/care coordination assessment. RN NISHI introduced self and role at [facility], pt voices understanding. Pt is A&Ox4 and is resting comfortably in bed and is calm. Pt friend at bedside. Care providers, pharmacy, and demographics verified. Admitting dx: Lumbar Fusion LACE Strata: 1 PCP: Ana Laura Bailey (PROBATION OFFICER) Specialists: (Endocrinology) Preferred Pharmacy: [facility] Insurance: MCR A/B Prescription Benefit: Yes LNOK: Glenn Morrelltere (Friend) Living Arrangements: Pt lives with his friend in a single story home with a BM with HR with 4 steps to enter with a HR. Pt states that he does not go down to the basement that often. Denies issues at home normally ADLs/IADLs: State ind at baseline Transportation: Self, Friend DME: BGM and enough supplies to check BS. CPAP at night with no additional O2. Pt uses a cane at home. Shower chair and GB. FWW. Second shower is walk-in. HHC/SNF: Denies HHC history. States history at [facility] pat d/t back surgery in 2012. Pt?s goal: Home with HHC Plan: PT is recommending [facility] for this pt. Pt states that he would like to go home with HHC set up. At this time, pt denies wanting to see a list of local in-network HHC agencies and states that he would be happy with [facility]. TC made to [facility] and referral made for PT and OT. Pt projected DC date is 10/30 or 10/31. Chani from [facility] states that she will call back. CM to follow for safe DC from [facility]. Jaison Gudino RN, CM
[2023-10-30] MEDS: Bisacodyl 5 MG Tablet PO (13:57)
--- NOTE | 2023-10-30 15:15 | NURSING ---
charge nurse and primary RN updated restarted iv but unable to obtain labs. aware per pt multiple staff from lab and nursing unable to collect.
[2023-10-30 16:42] LABS: Hematocrit 40.2 % (40-54); Hemoglobin 13.6 g/dL (13.0-16.5); Mean Corp Hgb Conc 33.8 g/dL (32-36); Mean Corpuscular Hgb 29.3 pg (27.0-32.0); Mean Corpuscular Volume 86.6 fL (80-94); Mean Platelet Vol. 10.1 fl (6.2-12.0); Platelet Count 161 K/mm3 (150-450); RBC Distribution Width CV 13.4 % (11.6-14.6); RBC Distribution Width SD 42.5 fl (35.1-43.9); Red Blood Count 4.64 M/mm3 (4.6-6.2); White Blood Count 10.7 K/mm3 (4.4-11.0)
[2023-10-30 17:08] LABS: Bedside Glucose 123 mg/dL (74-106)
[2023-10-30] MEDS: Insulin Glargine-YFGN 100 UNIT/ML Pen 60 UNIT SC (21:30)
[2023-10-30 22:12] LABS: Bedside Glucose 151 mg/dL (74-106)
[2023-10-31 02:12] VITALS: BP 118/69; PULSE 92; RESP 16; TEMP 36.6; O2SAT 97
[2023-10-31] MEDS: oxyCODONE 5 MG Tablet PO ×2 (06:07→11:54)
[2023-10-31] MEDS: Acetaminophen 500 MG Tablet 1000 MG PO (06:07)
[2023-10-31 06:37] LABS: Bedside Glucose 57 mg/dL (74-106)
[2023-10-31 08:08] LABS: Bedside Glucose 179 mg/dL (74-106)
[2023-10-31 08:08] LABS: Bedside Glucose 62 mg/dL (74-106)
[2023-10-31 08:20] VITALS: BP 132/71; PULSE 93; RESP 18; TEMP 36.2; O2SAT 93
--- NOTE | 2023-10-31 09:36 | PCM.PN.HOSP ---
Reason for Visit Reason for Visit: Diagnoses Spinal stenosis, lumbar region with neurogenic claudication (10/29/23) Other intervertebral disc displacement, lumbar region (10/29/23) Encounter for other preprocedural examination (10/29/23) Arthrodesis status (10/29/23) Subjective Subjective Postoperative day 2 patient seen pain is tolerable plan is for patient to be discharged to by primary service Objective Data Objective Data Vital Signs: Vital Signs Temp Pulse Resp BP Pulse Ox O2 Del Method O2 Flow Rate 97.2 F L 93 18 132/71 H 93 Room Air 3 10/31/23 08:20 10/31/23 08:20 10/31/23 08:20 10/31/23 08:20 10/31/23 08:20 10/31/23 08:20 10/31/23 02:12 Oxygen Flow Rate (L/min) 3 Oxygen Delivery Method Room Air Weight: 111.765 kg Body Mass Index (BMI) 38.5 Intake & Output: Intake and Output for Last 24 Hours 10/29/23 10/30/23 10/31/23 23:59 23:59 23:59 Intake Total 772 / 772 3205 / 3205 Output Total 1100 / 1900 1200 / 1200 Balance -328 / -1128 2004 Lab / Micro Data 10/30/23 16:35 10/30/23 12:55 Labs: Laboratory Results - last 24 hr 10/30/23 11:25: POC Glucose 182 H 10/30/23 12:55: WBC Cancelled, Corrected WBC Cancelled, RBC Cancelled, Hgb Cancelled, Hct Cancelled, MCV Cancelled, MCH Cancelled, MCHC Cancelled, RDW Std Deviation Cancelled, RDW Coeff of Yanick Cancelled, Plt Count Cancelled, MPV Cancelled, Diff Path Review Cancelled, Sodium 136, Potassium 4.2, Chloride 106, Carbon Dioxide 24.0, Anion Gap 6, BUN 21 H, Creatinine 1.22, Estim Creat Clear Calc 69.15, Est GFR (MDRD) Af Amer 76, Est GFR (MDRD) Non-Af 63, BUN/Creatinine Ratio 17.2, Glucose 164 H, Calcium 8.5 10/30/23 16:35: WBC 10.7, RBC 4.64, Hgb 13.6, Hct 40.2, MCV 86.6, MCH 29.3, MCHC 33.8, RDW Std Deviation 42.5, RDW Coeff of Yanick 13.4, Plt Count 161, MPV 10.1 10/30/23 16:46: POC Glucose 123 H 10/30/23 21:26: POC Glucose 151 H 10/31/23 06:02: POC Glucose 57 L 10/31/23 06:37: POC Glucose 62 L 10/31/23 07:08: POC Glucose 179 H Radiography Diagnostic Testing: Radiology Impression Spine X-Ray 10/29/23 13:55 IMPRESSION: Status post anterior and posterior fusion at the L3-L4 and L4-L5 levels with prosthetic disc placement. Electronically Signed: David Rey MD at 14:03 EDT , Lumbar Spine X-Ray 10/30/23 11:01 IMPRESSION: Status post posterior and anterior fusion at the L3-L4 and L4-L5 levels with prosthetic disc placement. Electronically Signed: David Rey MD at 13:12 EDT , Physical Exam Narrative GENERAL: cooperative HEENT: Atraumatic; normocephalic EYES; Anicteric, Normal Conjunctiva NECK; supple, normal thyroid, RESPIRATORY: Diminished to auscultation CARDIOVASCULAR: Regular S1 S2, GI: soft, normoactive bowel sounds, : No Renal angle tenderness; EXTREMITIES: No edema, no clubbing, MUSCULOSKELETAL: no muscle wasting NEURO: Awake; no lateralizing signs. SKIN: No Rash PSYCH; Flat affect Assessment & Plan Assessment/Plan (1) Spinal stenosis of lumbar region with neurogenic claudication: (2) Herniated nucleus pulposus, L4-5 right: PLAN: Plan Patient is a 68-year-old gentleman who underwent surgery for L3?5 disc degeneration with foraminal stenosis and herniated disc at L4-5. Ortho service was consulted for perioperative management This is a 3-year-old gentleman who is being evaluated for perioperative management after lumbar spine surgery. 1. L3-5 disc degeneration with foraminal stenosis ? Status postL3-5 oblique lumbar interbody fusion, left-sided approach by Dr. Prakash on 10/29/2023. Postoperative management regarding DVT prophylaxis pain management and PT OT deferred to primary service ? 10/31/2023 pain is tolerable 2. Diabetes mellitus type II -patient's oral hypoglycemics held. Placed on long acting insulin, Accu-Cheks a.c. and at bedtime and covered with sliding scale insulin ? 10/31/2023 blood glucose levels acceptable continue with current regimen 3. Hypertension - Blood pressure controlled, home medications continued with dose adjustment as needed 4. Obstructive sleep apnea ? Consistent use of CPAP encouraged 5. Class II obesity with BMI of 38.6 ? Complicating care weight loss advised 6. Mild intermittent asthma ? DuoNeb treatments as needed 7. DVT prophylaxis ? Deferred to primary service Time spent in the patient's overall evaluation,decision-making process, review of diagnostic data, adjustment of management, discussion with other providers, nursing nursing and ancillary staff involved in patient's care documentation, 35 Minutes Charges/Coding Visit Charges Inpatient E&M: 26428 Subs Hosp L2
[2023-10-31] MEDS: Atorvastatin Calcium 40 MG Tablet PO (10:53)
[2023-10-31] MEDS: Methocarbamol 500 MG Tablet 1000 MG PO (10:54)
[2023-10-31] MEDS: Senna/Docusate Sodium 1 Tablet 2 TABLET PO (10:54)
[2023-10-31] MEDS: Lisinopril 40 MG Tablet PO (10:54)
[2023-10-31] MEDS: Empagliflozin 25 MG Tablet PO (10:54)
[2023-10-31] MEDS: Meloxicam 15 MG Tablet PO (10:54)
[2023-10-31 11:51] LABS: Bedside Glucose 188 mg/dL (74-106)
--- NOTE | 2023-10-31 11:51 | CASEMGMT ---
MICHELLE ALMODOVAR NOTE: Pt being discharged. Call placed to [facility] and notified them of same. MICHELLE ALMODOVAR to room. Pt sitting up in chair. He denies having any discharge needs/concerns. Daphney PETERSON RN CM
[2023-10-31 11:59] VITALS: BP 132/79; PULSE 103; RESP 18; TEMP 36.9; O2SAT 93
== END 2023-10-31 12:30 | disposition home health service (06) | DRG 455 ==
LOC: ACINP 05:16 → MS3 16:07
PROVIDERS: Anesthesiology; Admitting Provider Orthopaedic Surgery Orthopaedic Surgery of the Spine; PCP Nurse Practitioner Family; Referring Provider Orthopaedic Surgery Orthopaedic Surgery of the Spine; Visit Provider Orthopaedic Surgery Orthopaedic Surgery of the Spine
PROC: 0SG10A0 Fusion of 2 or more Lumbar Vertebral Joints with Interbody Fusion Device, Anterior Approach, Anterior Column, Open Approach (ICD-10-PCS; principal; 2023-10-29 07:00)
DX: M48.062 Spinal stenosis, lumbar region with neurogenic claudication (principal); E11.9 Type 2 diabetes mellitus without complications; Z79.4 Long term (current) use of insulin; I10 Essential (primary) hypertension; J45.20 Mild intermittent asthma, uncomplicated; M51.16 Intervertebral disc disorders with radiculopathy, lumbar region; E78.00 Pure hypercholesterolemia, unspecified; M51.26 Other intervertebral disc displacement, lumbar region; G47.33 Obstructive sleep apnea (adult) (pediatric); E66.9 Obesity, unspecified; Z79.84 Long term (current) use of oral hypoglycemic drugs; Z87.891 Personal history of nicotine dependence; Z68.38 Body mass index [BMI] 38.0-38.9, adult
CPT/HCPCS: 36415; 72020; 72100; 76000; 80048; 80076; 82962; 83036; 83735; 84443; 85025; 85027; 86703; 86706; 86708; 86803; 93005; 94668; 94762; 97116; 97162; 97166; 97802; 99252; C1713; J7120; G0463; J2405; J3475

== ENCOUNTER 2023-11-11 16:04 | Emergency (ER) | payer MEDICARE, SELFPAY ==
[2023-11-11 16:06] VITALS: BP 146/83; PULSE 87; RESP 18; TEMP 36.3; O2SAT 96; BMI 38.0
--- NOTE | 2023-11-11 16:44 | EDS_ITS ---
HPI History of Present Illness Chief Complaint: Edema Narrative Narrative: 68-year-old male past medical history of type 2 diabetes, had a laminectomy performed by Dr. Cleary and Dr. Harley on October 28, approximately 2 weeks ago. He states that he has had foot swelling since then, but has gotten progressively worse, left greater than right. His physical therapist has been noting it. His left foot is more swollen and painful than the right. They called the surgeons and he was sent in for ultrasounds to rule out DVT. He denies any fevers or chills, no nausea or vomiting, no chest pain or shortness of breath. He states that his anterior tibial area was painful when the physical therapist was examining it. He has no complaints regarding his recent back surgery and states that he is doing pretty well and has no complaints. [facility] Medical History Ambulates with cane Anemia Arthritis Asthma Cardiology follow-up encounter CPAP (continuous positive airway pressure) dependence Depression Diastolic dysfunction Dietary restriction Diverticulitis Fatty liver Former smoker Heartburn Hepatitis High cholesterol History of echocardiogram History of edema History of heart attack History of pain when walking History of stress test Hypertension Injury of back Insulin dependent diabetes mellitus Leg cramps Lumbar herniated disc Neuropathic pain Polyarthralgia Prostate disease Protruded lumbar disc Restless legs Seborrheic keratoses Shortness of breath on exertion Thyroid disease Wears glasses Home Medications atorvastatin 40 mg tablet 40 mg PO DAILY CHOLESTEROL 05/02/23 [History Last Taken 10/28/23] empagliflozin 25 mg tablet (Jardiance) 25 mg PO QAM DIABETES 05/02/23 [History Last Taken 10/28/23 09:00] insulin glargine-yfgn 100 unit/mL (3 mL) subcutaneous pen 60 unit subcut QPM DIABETES 05/02/23 [History Last Taken 10/28/23 21:00] lisinopril 40 mg tablet 40 mg PO DAILY BP 05/02/23 [History Last Taken 10/29/23 04:00] albuterol sulfate 90 mcg/actuation aerosol inhaler 2 puff inhalation Q6H PRN shortness of breath or wheezing 05/29/23 [History Last Taken Unknown] metformin 500 mg tablet,extended release 24 hr 1,000 mg PO BID DIABETES 05/29/23 [History Last Taken 10/28/23 09:00] dulaglutide 4.5 mg/0.5 mL subcutaneous pen injector (Trulicity) 4.5 mg (0.5 mL) subcut QWEEK diabetes #2 mL 10/23/23 [Rx Last Taken 10/27/23 09:00] glipizide 10 mg tablet, extended release 24 hr 20 mg (2 x 10 mg) PO DAILY DIABETES #180 tabs 10/23/23 [Rx Last Taken 10/28/23 09:14] acetaminophen 500 mg tablet 500 mg PO Q6H 7 days #28 tabs 10/31/23 [Rx Last Taken Unknown] meloxicam 15 mg tablet 15 mg PO DAILY 30 days #30 tabs 10/31/23 [Rx Last Taken Unknown] methocarbamol 500 mg tablet 750 mg (1.5 x 500 mg) PO TID PRN Pain/spasms 7 days #35 tabs 10/31/23 [Rx Last Taken Unknown] oxycodone 5 mg tablet 2.5 - 5 mg (0.5 - 1 x 5 mg) PO Q6H PRN pain 7 days #28 tabs 10/31/23 [Rx Last Taken Unknown] sennosides 8.6 mg-docusate sodium 50 mg tablet (Stool Softener-Stimulant Laxative) 2 tab PO BID PRN constipation 7 days #28 tabs 10/31/23 [Rx Last Taken Unknown] Allergy/AdvReac Type Severity Reaction Status Date / Time cephalexin Allergy Rash Verified 11/11/23 16:05 doxycycline Allergy Diarrhea Verified 11/11/23 16:05 lovastatin Allergy Other Verified 11/11/23 16:05 metformin Allergy Diarrhea Verified 11/11/23 16:05 Sulfa (Sulfonamide Allergy Rash Verified 11/11/23 16:05 Antibiotics) Family History Grandfather Cancer Diabetes Hypertension Mother Cancer Diabetes Hypertension Surgical History History of appendectomy History of hernia repair History of lumbar laminectomy Hx of colectomy Hx of colonoscopy Status post lumbar microdiscectomy Social History household members: friend(s) Smoking Status: Former smoker alcohol intake: current alcohol intake frequency: a few times a week ROS ROS ED ROS Narrative Constitutional: No fever, no chills. HEENT: No sore throat. No neck pain. No loss of vision. No rhinorrhea. Cardiovascular: No chest pain. No palpitations. Bilateral lower extremity edema, left foot greater than right. Respiratory: No cough, no shortness of breath. Abdominal: No abdominal pain. No nausea. No vomiting. Genitourinary: No dysuria. No hematuria. Musculoskeletal: No myalgias. No arthralgias. Neurologic: No headaches. No dizziness. No lightheadedness. Skin: No rash. No change in color. Psychiatric: No depression. No anxiety. EXAM Physical Exam Narrative Exam Narrative: Afebrile. Vital signs noted. HEENT: Normocephalic. Atraumatic. PERRL, EOMI. Neck soft and supple. No point tenderness or step off. Cardiovascular: Regular rate and rhythm. No murmurs, rubs, or gallops appreciated. Respiratory: No tachypnea. Lungs clear to auscultation bilaterally. Gastrointestinal: Abdomen soft, nontender, with normoactive bowel sounds. No rebound or guarding. Neurological: Awake. Alert. Nonfocal, nonlateralizing. Skin: No rash. Normal color. No pallor. Back incision appears clean, dry, and intact without erythema. Musculoskeletal: Bilateral pedal edema, left foot swollen. Good capillary refill of toes bilaterally. Palpable dorsalis pedis pulse right. Exam limited on left secondary to edema. No palpable cord, no noted erythema. Full range of motion extremities. Const Vital Signs: 11/11/23 16:06 11/11/23 16:50 Temperature 97.3 F L Temperature Source Temporal Pulse Rate 87 Respiratory Rate 18 Respiratory Effort Normal Respiratory Pattern Normal Blood Pressure 146/83 H Blood Pressure Mean 104 Pulse Ox 96 Oxygen Delivery Method Room Air MDM MDM MDM Narrative Medical decision making narrative: In the differential diagnosis would be CHF versus peripheral edema versus DVT. I do not feel that he needs a chest x-ray or laboratory work currently. He does not have a history of CHF and his lungs are clear, and he has normal pulse ox/oxygen level. Ultrasound will be obtained of the bilateral lower extremities to rule out DVTs. I think this would be more plausible as he had recent surgery and mild immobility secondary to his surgery. Preliminary report of the bilateral venous duplexes as discussed with the senior environmental technician shows no evidence of DVT. At this point in time, I feel he can be discharged to follow-up with his primary care provider, and Dr. Prakash. Return instructions to the emergency department were reviewed. He will elevate his legs at home when possible. Disposition is discharged home in stable condition. Discharge Plan Triage Chief Complaint: Edema ED Provider: Gamaliel Zhao Dx/Rx/DC Orders Clinical Impression: Leg edema, S/P lumbar fusion Instructions: ED Peripheral Edema, Bilateral Prescriptions: No Action Jardiance 25 mg tablet 25 mg PO QAM Patient Comments: TAKE ONE TABLET BY MOUTH EVERY MORNING lisinopril 40 mg tablet 40 mg PO DAILY Patient Comments: TAKE ONE TABLET BY MOUTH EVERY DAY atorvastatin 40 mg tablet 40 mg PO DAILY Patient Comments: TAKE ONE TABLET BY MOUTH EVERY DAY insulin glargine-yfgn 100 unit/mL (3 mL) insulin pen 60 unit subcut QPM Patient Comments: pt took 30units 10/28/23 prior to surgery metformin 500 mg tablet extended release 24 hr 1,000 mg PO BID Patient Comments: TAKE TWO TABLETS BY MOUTH TWICE DAILY albuterol sulfate 90 mcg/actuation HFA aerosol inhaler 2 puff inhalation Q6H PRN (Reason: shortness of breath or wheezing) glipizide 10 mg tablet extended release 24hr 20 mg PO DAILY Qty: 180 1RF Trulicity 4.5 mg/0.5 mL pen injector 4.5 mg subcut QWEEK Qty: 2 5RF Patient Comments: There is a back order on 4.5 injector pen, pt has been using up 3mg injector pen till available. acetaminophen 500 mg Tablet 500 mg PO Q6H 7 Days Qty: 28 0RF meloxicam 15 mg Tablet 15 mg PO DAILY 30 Days Qty: 30 0RF methocarbamol 500 mg Tablet 750 mg PO TID PRN (Reason: Pain/spasms) 7 Days Qty: 35 0RF oxycodone 5 mg Tablet 2.5 - 5 mg PO Q6H PRN (Reason: pain) 7 Days Qty: 28 0RF sennosides-docusate sodium [Stool Softener-Stimulant Laxat] 8.6-50 mg Tablet 2 tab PO BID PRN (Reason: constipation) 7 Days Qty: 28 0RF Primary Care Provider: Ana Laura Bailey ADMINISTRATIVE MEDICAL DIRECTOR Referrals: Alvin Prakash MD [Med Staff - Active Staff] - As soon as possible Ana Laura Bailey NP, ADMINISTRATIVE MEDICAL DIRECTOR-C [Primary Care Provider] - As soon as possible Activity Restrictions/Additional Instructions: Elevate your legs when possible. Follow-up with Dr. Prakash and your primary care provider soon as possible. Disposition Disposition: Home, Self Care
--- NOTE | 2023-11-11 16:54 | US_ITS ---
STUDY: VENOUS DOPPLER ULTRASOUND - BILATERAL LOWER EXTREMITIES REASON FOR EXAM: Male, 68 years old. edema TECHNIQUE: Ultrasound evaluation of the deep vein system to include hernandes-scale imaging and compression was performed. Hernandes-scale imaging and Doppler sonographic evaluation, including duplex spectral analysis and qualitative color flow sonography, was performed. COMPARISON: None. FINDINGS: RIGHT LEG Common Femoral Vein: Normal compression, spontaneity and augmentation. Normal color Doppler. Common Femoral Vein/Greater Saphenous Junction: Normal compression, spontaneity and augmentation. Normal color Doppler. Deep Femoral Vein: Normal compression, spontaneity and augmentation. Normal color Doppler. Femoral Proximal: Normal compression, spontaneity and augmentation. Normal color Doppler. Femoral Middle: Normal compression, spontaneity and augmentation. Normal color Doppler. Femoral Distal: Normal compression, spontaneity and augmentation. Normal color Doppler. Popliteal Vein: Normal compression, spontaneity and augmentation. Normal color Doppler. Posterior Tibial Vein: Normal compression, spontaneity and augmentation. Normal color Doppler. Peroneal Vein: Normal compression, spontaneity and augmentation. Normal color Doppler. LEFT LEG Common Femoral Vein: Normal compression, spontaneity and augmentation. Normal color Doppler. Common Femoral Vein/Greater Saphenous Junction: Normal compression, spontaneity and augmentation. Normal color Doppler. Deep Femoral Vein: Normal compression, spontaneity and augmentation. Normal color Doppler. Femoral Proximal: Normal compression, spontaneity and augmentation. Normal color Doppler. Femoral Middle: Normal compression, spontaneity and augmentation. Normal color Doppler. Femoral Distal: Normal compression, spontaneity and augmentation. Normal color Doppler. Popliteal Vein: Normal compression, spontaneity and augmentation. Normal color Doppler. Posterior Tibial Vein: Normal compression, spontaneity and augmentation. Normal color Doppler. Peroneal Vein: Normal compression, spontaneity and augmentation. Normal color Doppler. US/Venous Duplex Imag/Sebas Extrem IMPRESSION: Normal venous Doppler ultrasound of the bilateral lower extremities. Electronically Signed: Maik Hope MD at 18:26 EDT ,
[2023-11-11 18:05] VITALS: BP 145/92; PULSE 89; RESP 16; TEMP 36.6; O2SAT 98
== END 2023-11-11 18:25 | disposition home or self-care (01) ==
PROVIDERS: Emergency Provider Emergency Medicine; PCP Nurse Practitioner Family; Visit Provider Emergency Medicine
DX: R60.0 Localized edema (principal); E11.9 Type 2 diabetes mellitus without complications; Z79.4 Long term (current) use of insulin; M79.672 Pain in left foot; Z98.1 Arthrodesis status; Z79.84 Long term (current) use of oral hypoglycemic drugs; Z79.85 Long-term (current) use of injectable non-insulin antidiabetic drugs; Z79.899 Other long term (current) drug therapy; Z87.891 Personal history of nicotine dependence
CPT/HCPCS: 93970; 99282

== ENCOUNTER 2024-01-14 09:30 | Outpatient (RCR) | payer MEDICARE, SELFPAY ==
--- NOTE | 2023-11-27 09:34 | HP.PTEVAL_ITS ---
Patient's Visit Information Visit Information Visit Information: NATO DILL is a 68 year old M referred to Physical Therapy by Dr. Alvin Prakash MD with a diagnosis of Lumbar fusion. Date of Evaluation: 11/27/23 Physical Therapist: SAVI DumontT, OCS, CSCS Visit Plan Frequency: 2x /Week Duration: 3 Months Plan: 2x/week for a month to start and 3 months overall ... start with isometric core strength and teaching gym program for overall body strength and calorie burning and work to I at place closer to home. HS and psoas stretches , gentle LB ROM, scar massage anterior incsion, rollout back muscles as needed. Pt is no bending lifting or twisting until January form doctor, doing sink exercises at home. Added at IE: supine trunk gentle rotation x10, skc x 10, pevic tilt x 10 all 2x/day , HS stretch supine daily, prone prop 3 min daily and walking 30 minutes daily. HO given Subjective Subjective: 10/29/23 Had fusion/laminectomy of L345. No bending lifting or twisting for 3 months until January. Symptoms prior to surgery back pain and R leg unbearable pain. Some numbness L leg groin since surgery. Pain level has gone down since surgery. I can move around for a while before it sets in. Does not get as severe. so far alot better since surgery, no sciatica. R leg feels good. Feels limited in what he can do, tries to avoid twisting. Had home therapy at home and continues some balance work, minisquats, HR, hip abd, ext. They are not hard anymore but were at first. Tolerates 30 minutes walking before needs to rest. Sleep is better and better, Has cpap and gets up in once per night to bathroom, stiff in am but gone quickly. Retired from maintenance. Basic ADLs are good with dressing, bathing and shower. Hobbies: fishing and has not done this, Likes [employer] and [email or web address] fishing. Photography which involves hiking but has not in a couple years. Pain LBP and L leg: Pain Intensity (Out of 10): 2 Pain Intensity Range: 0 and 3 Comment: discomfort most of time, not pain. Objective Objective: L incision anterior and central posterior incision no redness , heat or swelling Slight scarring posteriorly, moderate anteriorly. psoas and quad min tight, HS max tight at -35 90/90 test - SLR, - slump Hip and knee and ankle aROM WFL LB AROM not tested due to precautions UE AROM stiff with elevation but funcitonal Sensation LE WNL to gross light touch. reflexes 2/3 patella and achilles Strength hips 3+ abd and flexion and ext, 4 in knee flexion and ext and ankles at 4+, no myotomal problems today. Log rolls to trasnfer on bed I, can prone prop, sit to stand I with UE, steps reciprocal when asked but prefers R and requires rail up and down. Walking is stiff in the LB and pelvis with minimal hip ext at end of plant but I. Balance/Special Test Scores Functional Gait Assessment Score: 26 % Disability: 13.3400 Oswestry Low Back Score: 14 Goals Goal 1:: Pain 0-1/10 at all times and 90% better Goal Time Frame: 6-8 Weeks Goal 2:: I appropriate strength for core sandra entire body ex for calorie burning without pain Goal Time Frame: 4-6 Weeks Goal 3:: Hike in [place] safely for 45 minutes without increased pain Goal Time Frame: 6-8 Weeks Goal 4:: back oswestry score 5 or less Rehabilitation Potential Physical Therapy Diagnosis: Limited ROM and strength making mobility difficult Rehabilitation Potential: Good Anticipated Interventions Patient/Client Instruction: Educate patient on: Condition and Plan of Care For the Purpose of:: To decrease pain, To increase ROM, To improve nutrient delivery to tissue, To improve muscle performance and motor function, To increase tolerance to activity/condition/position, To improve ability of physical actions for home/community/work/leisure and To improve gait and locomotor functions Therapeutic Exercise to Include: Strength training, Postural training, Flexibilty training, Passive ROM, Active ROM and Dynamic Lumbar Stabilization Comment: body mechanics For the Purpose of:: To decrease pain, To increase ROM, To improve nutrient delivery to tissue, To improve muscle performance and motor function, To increase tolerance to activity/condition/position, To improve ability of physical actions for home/community/work/leisure and To improve gait and locomot or functions Manual Therapy Techniques to Include: Scar massage and Soft tissue mobilization For the Purpose of:: To decrease pain and To increase ROM Cryotherapy (ice pack, ice massage): Yes For the Purpose of:: To decrease swelling/inflammation Text: Thank you for the opportunity to evaluate your patient. For Medicare and Medicare HMO plans, please review the plan of care and approve it. It will need to be FAXED BACK to us at [phone] for Medicare purposes. For Medicare only, by signing this I certify the plan of care. Please let me know if there are questions or concerns regarding this plan of care. Physician Signature: Date:
--- NOTE | 2024-01-14 10:21 | HP.PTDCSUM ---
Discharge Summary D/C summary: It has been my pleasure to treat NATO DILL referred by Dr. Alvin Prakash MD, with the diagnosis of Lumbar fusion 10/29/23 for a total of 14 visit(s). Discharge Date: 01/14/24 Please see the following information for a summary of their discharge status. Subjective Subjective: I am doing well. Doing fine. Upper body feels good. Lower body getting better. Kneeling to stand is hard from the right LE. Weaker. Wobbly sometimes when on feet and tired. Pain is not an issue. Will go to [employer] and walk a lot this weekend. Sleep is not a problem, getting to sleep is an issue at times, my brain won't shut down. To doctor in January. Will continue workout at [employer]. Pain LBP and L leg: Pain Intensity (Out of 10): 0 Overall Improvement % Improvement: 80 Objective Objective/Function: lumbar extension and SB min limited, flexion max limited and hesitant. Walking well. strength 4+ knee ext, flexion and Df B LE. Subjectively doing well and continue on his own at his gym, has list. Goals Goal 1:: Pain 0-1/10 at all times and 90% better Goal Progress: 80% Goal 2:: I appropriate strength for core and a entire body ex for calorie burning without pain Goal Progress: Goal Met Goal 3:: Hike in [place] safely for 45 minutes without increased pain Goal Progress: Goal Met for 20-30 min Goal 4:: back oswestry score 5 or less Goal Progress: Progressing Plan Plan: d/c, pt to doctor in a month and will continue HEP until then. D/C Information Discharge Comments: Pt to continue via HEp, stretches and [employer] gym in community and f/u with doctor in January. d/c sentence: If there are questions or concerns regarding this patient's physical therapy, please feel free to call me at [phone]. Thank you for the referral of this patient. Sincerely, Hernán Fortune, DPT, OCS, CSCS Balance/Gait/Functional tests Balance/Special Test Scores Functional Gait Assessment Score: 26 % Disability: 13.3400 Oswestry Low Back Score: 10 Improvement % Improvement: 80
== END 2024-01-14 19:00 | disposition home or self-care (01) ==
LOC: PT 09:30
PROVIDERS: PCP Nurse Practitioner Family; Referring Provider Orthopaedic Surgery Orthopaedic Surgery of the Spine; Visit Provider Orthopaedic Surgery Orthopaedic Surgery of the Spine
DX: Z98.1 Arthrodesis status (principal)
CPT/HCPCS: 97110; 97161; 97530